=== PATIENT | female | born 1955 | race Caucasian/White ===

== ENCOUNTER 2022-07-08 11:02 | Inpatient (IN) | payer OTHER ==
[2022-07-08 11:22] VITALS: BMI 30.2
[2022-07-08] MEDS ORDERED: BENZOCAINE/MENTHOL (CHLORASEPTIC ) LOZENGE MM PRN (11:53)
[2022-07-08] MEDS ORDERED: IBUPROFEN 400 MG TABLET (FP) PO PRN (11:53)
[2022-07-08] MEDS ORDERED: ACETAMINOPHEN 325 MG TABLET (FP) PO PRN (11:53)
[2022-07-08] MEDS ORDERED: DICYCLOMINE HCL 10 MG CAPSULE PO PRN (11:53)
[2022-07-08] MEDS ORDERED: MAGNESIUM HYDROX 2400MG/30ML ORAL SUSPENSION 30 ML CUP PO PRN (11:53)
[2022-07-08] MEDS ORDERED: BISMUTH SUBSALICYLATE 262 MG/15 ML BTL PO PRN (11:53)
[2022-07-08] MEDS ORDERED: POLYETHYLENE GLYCOL (HEALTHYLAX) 3350 17 GM PACKET PO PRN (11:53)
[2022-07-08] MEDS ORDERED: MAG HYDROX/AL HYDROX/SIMETH 30 ML UNIT-DOSE CUP PO PRN (11:53)
[2022-07-08] MEDS ORDERED: ONDANSETRON *ODT* 4 MG TABLET SL PRN (11:53)
[2022-07-08] MEDS ORDERED: IBUPROFEN 600 MG TABLET (FP) PO PRN (11:53)
[2022-07-08] MEDS ORDERED: LOPERAMIDE HCL 2 MG CAPSULE PO PRN (11:53)
[2022-07-08] MEDS ORDERED: NALOXONE HCL (KLOXXADO) 8 MG SPRAY NS PRN (11:53)
[2022-07-08] MEDS ORDERED: NICOTINE 10 MG CARTRIDGE (INHALER) IH PRN (11:53)
[2022-07-08] MEDS: NICOTINE 14 MG/24 HOURS TOPICAL PATCH TD SCH (12:00)
[2022-07-08 14:40] LABS: HEMATOCRIT 43.7 % (32.4-45.2); HEMOGLOBIN 14.7 GM/dL (10.7-15.3); MCH 35.3 pg (25.7-33.7); MCHC 33.7 g/dl (32.0-36.0); MEAN CELL VOLUME 104.8 fl (80-96); MEAN PLT VOLUME 8.9 fl (7.5-11.1); PLATELET COUNT 259 10^3/uL (134-434); RBC 4.17 M/mm3 (3.60-5.2); RDW 14.5 % (11.6-15.6); WHITE BLOOD COUNT 9.6 K/mm3 (4.0-10.0)
[2022-07-08] MEDS ORDERED: NICOTINE 14 MG/24 HOURS TOPICAL PATCH TD ONE (14:48)
[2022-07-08 15:00] LABS: ALBUMIN 3.7 g/dl (3.4-5.0); BLOOD UREA NITROGEN 15.2 mg/dL (7-18)
[2022-07-08 15:03] LABS: CREATININE 0.8 mg/dL (0.55-1.3)
[2022-07-08 15:04] LABS: BILIRUBIN,TOTAL 0.6 mg/dL (0.2-1); TOT PROT 6.9 g/dl (6.4-8.2)
[2022-07-08 15:11] LABS: CALCIUM 8.8 mg/dL (8.5-10.1)
[2022-07-08] MEDS: diazePAM 5 MG TABLET PO SCH ×2 (17:41→22:27)
[2022-07-08] MEDS: MELATONIN 5 MG TABLETS PO SCH (22:26)
[2022-07-08] MEDS: THIAMINE HCL 100 MG TABLET (FP) PO SCH (22:26)
[2022-07-08] MEDS: METHOCARBAMOL 500 MG TABLET PO PRN (22:28)
[2022-07-08] MEDS: hydrOXYzine PAMOATE 25 MG CAPSULE (FP) PO PRN (22:28)
[2022-07-08] MEDS ORDERED: ALBUTEROL SO4 HFA INHALER IH ONE (22:30)
[2022-07-09] MEDS: diazePAM 5 MG TABLET PO SCH ×4 (06:14→22:07)
[2022-07-09] MEDS: PRENATAL VITAMINS W/ FOLIC ACID TABLET (FP) PO SCH (10:16)
[2022-07-09] MEDS: NICOTINE 14 MG/24 HOURS TOPICAL PATCH TD SCH (10:17)
[2022-07-09] MEDS ORDERED: methaDONE HCL 10 MG TABLET PO SCH (11:30)
[2022-07-09] MEDS: methaDONE 40 MG, methaDONE 10 MG PO SCH (12:02)
[2022-07-09] MEDS: ALBUTEROL SO4 HFA INHALER IH PRN (17:15)
[2022-07-09] MEDS ORDERED: BUDESONIDE/FORMETEROL FUMARATE 80/4.5 mcg INHALER IH ONE (17:17)
[2022-07-09] MEDS: ALBUTEROL SO4 2.5/IPRATROPIUM 0.5 INH SOL 3 ML VIAL.NEB. NEB PRN (17:30)
[2022-07-09] MEDS: MELATONIN 5 MG TABLETS PO SCH (22:06)
[2022-07-09] MEDS: THIAMINE HCL 100 MG TABLET (FP) PO SCH (22:06)
[2022-07-09] MEDS: LACTULOSE 20 GM/30 ML UDC (FOR ORAL USE ONLY) PO SCH (22:06)
[2022-07-09] MEDS: BUDESONIDE/FORMETEROL FUMARATE 80/4.5 mcg INHALER IH SCH (22:06)
[2022-07-09] MEDS: hydrOXYzine PAMOATE 25 MG CAPSULE (FP) PO PRN (22:08)
[2022-07-10] MEDS: methaDONE 40 MG, methaDONE 10 MG PO SCH (07:06)
[2022-07-10] MEDS: LACTULOSE 20 GM/30 ML UDC (FOR ORAL USE ONLY) PO SCH ×3 (07:06→22:09)
[2022-07-10] MEDS: diazePAM 5 MG TABLET PO SCH ×3 (07:07→22:09)
[2022-07-10] MEDS: PRENATAL VITAMINS W/ FOLIC ACID TABLET (FP) PO SCH (10:16)
[2022-07-10] MEDS: BUDESONIDE/FORMETEROL FUMARATE 80/4.5 mcg INHALER IH SCH ×2 (10:17→22:09)
[2022-07-10] MEDS: diazePAM 5 MG TABLET PO PRN (10:17)
[2022-07-10] MEDS: NICOTINE 14 MG/24 HOURS TOPICAL PATCH TD SCH (10:17)
[2022-07-10] MEDS: MELATONIN 5 MG TABLETS PO SCH (22:09)
[2022-07-10] MEDS: METHOCARBAMOL 500 MG TABLET PO PRN (22:09)
[2022-07-10] MEDS: THIAMINE HCL 100 MG TABLET (FP) PO SCH (22:09)
[2022-07-10] MEDS: ALBUTEROL SO4 HFA INHALER IH PRN (22:12)
[2022-07-11] MEDS: methaDONE 40 MG, methaDONE 10 MG PO SCH (05:45)
[2022-07-11] MEDS: diazePAM 5 MG TABLET PO SCH ×2 (05:48→17:44)
[2022-07-11] MEDS: LACTULOSE 20 GM/30 ML UDC (FOR ORAL USE ONLY) PO SCH ×3 (07:07→22:07)
[2022-07-11] MEDS: BUDESONIDE/FORMETEROL FUMARATE 80/4.5 mcg INHALER IH SCH ×2 (10:10→22:07)
[2022-07-11] MEDS: diazePAM 5 MG TABLET PO PRN (10:11)
[2022-07-11] MEDS: ALBUTEROL SO4 HFA INHALER IH PRN ×3 (10:11→22:07)
[2022-07-11] MEDS: NICOTINE 14 MG/24 HOURS TOPICAL PATCH TD SCH (10:13)
[2022-07-11] MEDS: PRENATAL VITAMINS W/ FOLIC ACID TABLET (FP) PO SCH (10:13)
[2022-07-11] MEDS: hydrOXYzine PAMOATE 25 MG CAPSULE (FP) PO PRN (17:43)
[2022-07-11] MEDS: ACETAMINOPHEN 325 MG TABLET (FP) PO PRN (17:45)
[2022-07-11] MEDS: ALBUTEROL SO4 2.5/IPRATROPIUM 0.5 INH SOL 3 ML VIAL.NEB. NEB PRN (18:40)
[2022-07-11] MEDS: MELATONIN 5 MG TABLETS PO SCH (22:08)
[2022-07-11] MEDS: THIAMINE HCL 100 MG TABLET (FP) PO SCH (22:08)
[2022-07-11] MEDS: METHOCARBAMOL 500 MG TABLET PO PRN (22:10)
[2022-07-12] MEDS: methaDONE 40 MG, methaDONE 10 MG PO SCH (05:41)
[2022-07-12] MEDS: LACTULOSE 20 GM/30 ML UDC (FOR ORAL USE ONLY) PO SCH (05:41)
[2022-07-12] MEDS: ACETAMINOPHEN 325 MG TABLET (FP) PO PRN (05:42)
[2022-07-12] MEDS ORDERED: diazePAM 5 MG TABLET PO ONE (06:00)
[2022-07-12 06:33] VITALS: RESP 18
[2022-07-12] MEDS: hydrOXYzine PAMOATE 25 MG CAPSULE (FP) PO PRN (09:58)
[2022-07-12] MEDS: ALBUTEROL SO4 HFA INHALER IH PRN (09:59)
[2022-07-12] MEDS: PRENATAL VITAMINS W/ FOLIC ACID TABLET (FP) PO SCH (09:59)
[2022-07-12] MEDS: BUDESONIDE/FORMETEROL FUMARATE 80/4.5 mcg INHALER IH SCH (09:59)
[2022-07-12] MEDS: NICOTINE 14 MG/24 HOURS TOPICAL PATCH TD SCH (10:02)
[2022-07-12 13:05] VITALS: BP 139/82; PULSE 98; TEMP 97.7
== END 2022-07-12 14:00 | disposition other institution (70) | DRG 897 ==
LOC: YASAS 11:02 → Y3N 13:15
PROVIDERS: ADMIT Allergy & Immunology; ATTEND Surgery
PROC: HZ2ZZZZ Detoxification Services for Substance Abuse Treatment (ICD-10-PCS; principal; 2022-07-08)
DX: F10.230 Alcohol dependence with withdrawal, uncomplicated (principal); F14.20 Cocaine dependence, uncomplicated; F11.20 Opioid dependence, uncomplicated; J44.1 Chronic obstructive pulmonary disease with (acute) exacerbation; F17.210 Nicotine dependence, cigarettes, uncomplicated; F12.20 Cannabis dependence, uncomplicated; F41.9 Anxiety disorder, unspecified; I10 Essential (primary) hypertension; M17.0 Bilateral primary osteoarthritis of knee; M54.2 Cervicalgia; M54.50 Low back pain, unspecified; G89.29 Other chronic pain; R76.11 Nonspecific reaction to tuberculin skin test without active tuberculosis; Z88.8 Allergy status to other drugs, medicaments and biological substances
CPT/HCPCS: 36415; 71046-TC-FY; 80053; 82140; 85027; 86780; 87811; 93005; 93010; 94640; C9803-CS; U0003; U0005

== ENCOUNTER 2022-07-11 23:50 | Emergency (ER) | payer OTHER ==
[2022-07-12 00:20] VITALS: BP 164/88; PULSE 89; RESP 22; TEMP 98.2; BMI 31.1
[2022-07-12] MEDS ORDERED: DEXAMETHASONE SOD PHOSPHATE 20 MG/5 ML VIAL IVPB ONE (00:26)
[2022-07-12] MEDS ORDERED: ACETAMINOPHEN 1000 MG/100 ML BAG IVPB ONE (00:26)
[2022-07-12] MEDS ORDERED: DEXAMETHASONE SOD PHOSPHATE 4 MG/1 ML VIAL ONE (00:28)
[2022-07-12] MEDS ORDERED: DEXAMETHASONE SOD PHOSPHATE 10 MG/1 ML VIAL ONE (00:28)
[2022-07-12] MEDS ORDERED: ALBUTEROL SO4 2.5/IPRATROPIUM 0.5 INH SOL 3 ML VIAL.NEB. NEB ONE ×2 (00:30→00:36)
[2022-07-12] MEDS ORDERED: ACETAMINOPHEN INJECTION 100 ML IVPB ONE (00:42)
[2022-07-12 00:44] LABS: BASO % 0.6 % (0-2.0); EOS % 1.3 % (0-4.5); HEMATOCRIT 40.5 % (32.4-45.2); HEMOGLOBIN 13.3 GM/dL (10.7-15.3); LYMPH % 27.1 % (8-40); MCH 34.5 pg (25.7-33.7); MCHC 32.8 g/dl (32.0-36.0); MEAN CELL VOLUME 105.3 fl (80-96); MEAN PLT VOLUME 7.9 fl (7.5-11.1); MONO % 8.5 % (3.8-10.2); NEUT % 62.5 % (42.8-82.8); PLATELET COUNT 203 10^3/uL (134-434); RBC 3.85 M/mm3 (3.60-5.2); RDW 14.8 % (11.6-15.6); VENOUS BASE EXCESS 8.1 mmol/L (-2-2); VENOUS O2 SATURATION 89.1 % (70-80); VENOUS PCO2 57.8 mmHg (38-52); VENOUS PH 7.4 (7.310-7.410); WHITE BLOOD COUNT 7.3 K/mm3 (4.0-10.0)
[2022-07-12 00:53] LABS: INR 1.21 (0.83-1.09)
[2022-07-12 01:08] LABS: ALBUMIN 3.3 g/dl (3.4-5.0); BLOOD UREA NITROGEN 10.4 mg/dL (7-18); CALCIUM 9.2 mg/dL (8.5-10.1)
[2022-07-12 01:11] LABS: CREATININE 0.6 mg/dL (0.55-1.3)
[2022-07-12 01:12] LABS: BILIRUBIN,TOTAL 0.3 mg/dL (0.2-1); TOT PROT 6.4 g/dl (6.4-8.2)
[2022-07-12 05:29] LABS: ANISOCYTOSIS 1+; MACROCYTOSIS 0
== END 2022-07-12 03:03 | disposition home or self-care (01) ==
LOC: JER 23:50
PROC: 3E033GC Introduction of Other Therapeutic Substance into Peripheral Vein, Percutaneous Approach (ICD-10-PCS; principal; 2022-07-11)
PROC: 3E0F7GC Introduction of Other Therapeutic Substance into Respiratory Tract, Via Natural or Artificial Opening (ICD-10-PCS; 2022-07-11)
DX: J45.909 Unspecified asthma, uncomplicated (principal)
CPT/HCPCS: 0241U-QW; 36415; 71045-TC-FY; 80053; 82803; 83735; 84484; 85025; 85610; 85730; 93005; 93010; 99285-25